=== PATIENT | female | born 1945 | race Two or more races ===

== ENCOUNTER → 2016-08-18 | Outpatient (CLI) | payer OTHER, MEDICAID | LOC: BHFA 09:30 | PROVIDERS: ATTEND Internal Medicine Cardiovascular Disease | DX: I34.0 Nonrheumatic mitral (valve) insufficiency (principal) | CPT/HCPCS: 78452; 93017; A9500; J2785 ==

== ENCOUNTER → 2016-08-21 | Outpatient (CLI) | payer OTHER, MEDICAID | LOC: BHFA 09:15 | PROVIDERS: ATTEND Internal Medicine Cardiovascular Disease | DX: I25.10 Atherosclerotic heart disease of native coronary artery without angina pectoris (principal); R01.1 Cardiac murmur, unspecified ==

== ENCOUNTER 2016-08-28 11:28 | Observation (INO) | payer OTHER, MEDICAID ==
[2016-08-28] MEDS ORDERED: DIAZEPAM 5 MG TAB PO ONE (11:30)
[2016-08-28] MEDS ORDERED: NS 1,000 ML IV ONE (11:30)
[2016-08-28] MEDS ORDERED: ASPIRIN EC 325 MG TAB PO ONE (11:30)
[2016-08-28] MEDS ORDERED: FAMOTIDINE 20 MG TAB PO ONE (11:30)
[2016-08-28] MEDS ORDERED: diphenhydrAMINE 25 MG CAP PO ONE (11:30)
--- NOTE | 2016-08-28 12:02 | CPEKG ---
Heart Rate: 64 RR Interval: 938 P-R Interval: 144 QRSD Interval: 96 QT Interval: 448 QTC Interval: 463 P [place]ern[place]: -15 QRS [place]: -6 T Wave [place]: 40 EKG Severity - NORMAL ECG - EKG Impression: SINUS RHYTHM Electronically Signed By: Oc Mcbride 29-Aug-2016 11:57:04
[2016-08-28 12:17] LABS: % IMMATURE GRANULYOCYTES 0.3 % (0.0-1.1); ABSOLUTE IMMATURE GRANULOCYTES 0.03 10^3/uL (0.00-0.10); ADD DIFF? NO; ADD MORPH? NO; ADD SCAN? NO; ATYPICAL LYMPHOCYTE FLAG 10 (0-99); FRAGMENT RBC FLAG 0 (0-99); HEMATOCRIT 37.2 % (38.0-47.0); LEFT SHIFT FLG 0 (0-99); LIPEMIA HEMOLYSIS FLAG 80 (0-99); MEAN CELL HEMOGLOBIN 30.6 pg (27.9-34.1); MEAN CELL HEMOGLOBIN CONCENTR. 32.3 g/dL (32.4-36.7); MEAN CELL VOLUME 94.9 fL (81.5-99.8); MEAN PLATELET VOLUME 10.4 fL (8.7-11.7); PLATELET CLUMPS FLAG 0 (0-99); PLATELET COUNT 209 10^3/uL (150-400); RED BLOOD CELL COUNT 3.92 10^6/uL (4.18-5.33); RED CELL DISTRIBUTION WIDTH 13.6 % (11.5-15.2)
[2016-08-28 12:33] LABS: ANION GAP 11 mEq/L (8-16); CALCIUM 9.3 mg/dL (8.5-10.4); CARBON DIOXIDE 24 mEq/l (22-31); CHLORIDE 109 mEq/L (97-110); CHOLESTEROL 145 mg/dL (140-220); CHOLESTEROL/HDL RATIO 2.46 RATIO (1.00-4.44); CREATININE 0.6 mg/dL (0.6-1.0); GLOMERULAR FILTRATION RATE > 60; GLUCOSE 79 mg/dL (70-100); HIGH DENSITY LIPOPROTEIN 59 mg/dL (40-85); LDL/HDL RATIO 1.15 RATIO (1.00-3.22); LOW DENSITY LIPOPROTEIN 68 mg/dL (80-100); POTASSIUM 3.6 mEq/L (3.5-5.2); SODIUM 144 mEq/L (134-144); TRIGLYCERIDE 94 mg/dL (35-135); VERY LOW DENSITY LIPOPROTEINS 18 mg/dL (8-25)
[2016-08-28 12:34] LABS: MAGNESIUM 2.3 mg/dL (1.6-2.3); NON-HIGH DENSITY LIPOPROTEIN 86 mg/dL (90-129)
[2016-08-28 12:35] LABS: INR 1.15 (0.83-1.16); PROTIME(PATIENT) 14.6 SEC (12.0-15.0)
[2016-08-28] MEDS ORDERED: fentaNYL 100 MCG/2 ML INJ ONE (12:36)
[2016-08-28] MEDS ORDERED: VERAPAMIL 5 MG/2 ML VIAL ONE (12:36)
[2016-08-28] MEDS ORDERED: LIDOCAINE 1% 300 MG/30 ML SDV ONE (12:36)
[2016-08-28] MEDS ORDERED: MIDAZOLAM 2 MG/2 ML VIAL ONE (12:36)
[2016-08-28] MEDS ORDERED: IOPAMIDOL (ISOVUE-370) 150 ML BTL IV ONE ×2 (12:37→13:30)
[2016-08-28] MEDS ORDERED: BIVALIRUDIN 250 MG/5 ML VIAL IV ONE ×2 (13:30)
[2016-08-28] MEDS ORDERED: NITROGLYCERIN 1,500 MCG/15 ML VIAL MISC ONE (13:30)
[2016-08-28] MEDS ORDERED: CLOPIDOGREL BISULFATE 75 MG TAB ONE ×2 (13:53→13:54)
--- NOTE | 2016-08-28 14:45 | CPEKG ---
Heart Rate: 60 RR Interval: 1000 P-R Interval: 184 QRSD Interval: 98 QT Interval: 452 QTC Interval: 452 P Lowber: 33 QRS Lowber: -6 T Wave Lowber: 46 EKG Severity - OTHERWISE NORMAL ECG - EKG Impression: SINUS RHYTHM EKG Impression: VENTRICULAR PREMATURE COMPLEX Electronically Signed By: Oc Mcbride 29-Aug-2016 11:57:14
[2016-08-28] MEDS ORDERED: ONDANSETRON DISINTEGRATING 4 MG TAB PO PRN (15:44)
[2016-08-28] MEDS ORDERED: TEMAZEPAM 15 MG CAP PO PRN (15:44)
[2016-08-28] MEDS ORDERED: LORazepam 2 MG/ML INJ IVP PRN (15:44)
[2016-08-28] MEDS ORDERED: ATROPINE SULFATE 1 MG/10 ML SYR IVP PRN (15:44)
[2016-08-28] MEDS ORDERED: ACETAMINOPHEN 325 MG TAB PO PRN (15:44)
[2016-08-28] MEDS ORDERED: CLOPIDOGREL BISULFATE 75 MG TAB PO ONE (15:44)
[2016-08-28] MEDS ORDERED: ONDANSETRON 4 MG/2 ML VIAL IVP PRN (15:44)
[2016-08-28] MEDS ORDERED: OXYCODONE/APAP 5/325 TAB PO PRN (15:44)
[2016-08-28] MEDS ORDERED: NITROGLYCERIN 0.4 MG BTL SL PRN (15:44)
[2016-08-28] MEDS ORDERED: NS 1,000 ML IV SCH (15:45)
[2016-08-28] MEDS ORDERED: ISOSORBIDE MONONITRATE 30 MG TAB.SR PO SCH (18:00)
[2016-08-28] MEDS ORDERED: NON-FORMULARY NEW DRUG (Simvastatin [Simvastatin] 40 MG) PO SCH (18:00)
--- NOTE | 2016-08-28 20:15 | CPIP ---
[f rep st] INVASIVE CARDIAC PROCEDURE DATE OF PROCEDURE: 08/28/2016 PROCEDURE PERFORMED: 1. Selective coronary angiography. 2. Left heart catheterization. 3. Left ventriculogram. 4. Percutaneous transluminal coronary angioplasty and stent placement of the mid right coronary art sebastian with a 4.0 x 28 Synergy drug-eluting stent. COMPLICATIONS: None. INDICATIONS FOR PROCEDURE: CCS class 4 symptoms of angina, presenting in an unstable pattern, occur ring at rest as well as a high risk stress test with perfusion deficit of the anterior wall. Anterior wall motion abnormalities on the nuclear stress test considered intermediate to high risk s tress test. PROCEDURE IN DETAIL: After informed consent was obtained and n.p.o. status was confirmed, the regio n of the right groin was cleaned, prepped and draped in sterile fashion. Approximately 15 cc of 1% lidocaine were utilized for local anesthesia. A 6-Israeli sheath was placed in the right common femo ral artery with single entry puncture of vessel. The patient then underwent the previously mentione d diagnostic procedure with use of JR4 and L4 curve coronary catheters as well as 6-Israeli pigtail c atheter. Standard wire exchange technique was utilized for all catheter exchanges. The left main coronary lumen is approximately 6 mm in size. It bifurcates into an LAD and circumfle x system. The LAD has been previously stented at the level of the diagonal takeoff and is widely pa tent with OCTAVIA-3 flow to the distal vessel. There is no evidence of in-stent restenosis angiographi brianna and no evidence of significant blockage involving the diagonal takeoff which has been previous ly ballooned. The circumflex obtuse marginal system reveals luminal irregularity consistent with un derlying atherosclerosis, maximal luminal stenosis approximately 20%. No flow-limiting obstruction is identified. The right coronary artery is dominant and large approximately 4 mm in size giving rise to posterior descending and 2 posterolateral ventricular branches. The mid right coronary artery is severely dis eased with hazy appearing lesions which may be in fact unstable. These findings angiographically ma y be consistent with clot formation. The patient then underwent QCA of the blood vessels demonstrat ing a 78% obstruction of the right coronary artery in its mid course just distal to the right ventri cular branch takeoff. The patient underwent left heart catheterization with a pigtail catheter demonstrating preserved and normal ejection fraction at 60%. No resting segmental wall motion abnormalities, mitral regurgitat ion or evidence of aortic stenosis was noted on pullback across the aortic valve. A right coronary guiding catheter was used for guide catheter support and Intuition wire was advance d across the lesion in question. It was primarily ballooned with a 3.5 x 15 Emerge balloon. Ultimchantale walker after we created some room there we were able to place a 4.0 x 28 Synergy drug-eluting stent wh ich was inflated at high pressure to 16 atmospheres with 2 serial inflations which resulted in a 0% residual stenosis status post PTCA and stent placement with excellent and OCTAVIA-3 flow. SUMMARY OF FINDINGS: Severe robinson vessel coronary disease with prior stent of the LAD and balloon angioplasty of the diagonal take-off of the LAD, now with a new 80% lesion with OCTAVIA-3 flow by QCA a nalysis, and 0% residual stenosis status post PTCA and stent implantation. The patient appears to b e a good candidate for ongoing medical therapy, should be admitted overnight for observation and we will discharge home tomorrow when she is able to take p.o. and ambulate without assistance. /[id number]/MODL
[2016-08-28] MEDS: AZELASTINE NASAL MDI NS SCH (20:41)
[2016-08-29 05:01] LABS: % IMMATURE GRANULYOCYTES 0.2 % (0.0-1.1); ABSOLUTE IMMATURE GRANULOCYTES 0.01 10^3/uL (0.00-0.10); ADD DIFF? NO; ADD MORPH? NO; ADD SCAN? NO; ATYPICAL LYMPHOCYTE FLAG 10 (0-99); FRAGMENT RBC FLAG 0 (0-99); HEMOGLOBIN 12.2 g/dL (12.6-16.3); LEFT SHIFT FLG 0 (0-99); LIPEMIA HEMOLYSIS FLAG 80 (0-99); MEAN CELL HEMOGLOBIN 30.2 pg (27.9-34.1); MEAN CELL HEMOGLOBIN CONCENTR. 32.1 g/dL (32.4-36.7); MEAN CELL VOLUME 94.1 fL (81.5-99.8); MEAN PLATELET VOLUME 10.3 fL (8.7-11.7); PLATELET CLUMPS FLAG 0 (0-99); PLATELET COUNT 185 10^3/uL (150-400); RED BLOOD CELL COUNT 4.04 10^6/uL (4.18-5.33); RED CELL DISTRIBUTION WIDTH 13.7 % (11.5-15.2)
[2016-08-29 05:49] LABS: ALBUMIN 3.7 g/dL (3.5-5.0); ANION GAP 11 mEq/L (8-16); ASPARTATE AMINOTRANSFERASE 17 IU/L (14-46); BILIRUBIN,TOTAL 0.6 mg/dL (0.1-1.4); CALCIUM 9.3 mg/dL (8.5-10.4); CARBON DIOXIDE 19 mEq/l (22-31); CHLORIDE 112 mEq/L (97-110); CREATININE 0.6 mg/dL (0.6-1.0); GLOMERULAR FILTRATION RATE > 60; GLUCOSE 85 mg/dL (70-100); LACTATE DEHYDROGENASE 377 IU/L (313-618); MAGNESIUM 2.2 mg/dL (1.6-2.3); SODIUM 142 mEq/L (134-144)
--- NOTE | 2016-08-29 06:30 | CPEKG ---
Heart Rate: 62 RR Interval: 968 P-R Interval: 152 QRSD Interval: 94 QT Interval: 456 QTC Interval: 463 P Trent: -14 QRS Trent: 7 T Wave Trent: 45 EKG Severity - ABNORMAL ECG - EKG Impression: SINUS RHYTHM EKG Impression: CONSIDER ANTEROSEPTAL INFARCT Electronically Signed By: Oc Mcbride 29-Aug-2016 11:57:21
[2016-08-29] MEDS ORDERED: IRBESARTAN 150 MG TAB PO SCH (09:00)
[2016-08-29] MEDS ORDERED: amLODIPine BESYLATE 5 MG TAB PO SCH (09:00)
[2016-08-29] MEDS ORDERED: ASPIRIN EC 325 MG TAB PO SCH (09:00)
[2016-08-29] MEDS ORDERED: CLOPIDOGREL BISULFATE 75 MG TAB PO SCH (09:00)
[2016-08-29] MEDS ORDERED: ATORVASTATIN CALCIUM 20 MG TAB PO SCH (09:00)
[2016-08-29] MEDS: AZELASTINE NASAL MDI NS SCH (09:46)
[2016-08-29 12:05] VITALS: BP 134/70; PULSE 80; RESP 16; TEMP 97.9; O2SAT 93
--- NOTE | 2016-08-29 13:07 | GDS ---
[f rep st] DISCHARGE SUMMARY ADMIT DIAGNOSES: 1. Unstable angina pectoris. 2. Abnormal nuclear stress test. 3. Coronary artery disease. 4. Dyslipidemia. 5. Hypertension. DISCHARGE DIAGNOSES: 1. Coronary artery disease, status post PTCA and stent placement of the right coronary artery. Uns table angina, resolved. 2. Coronary artery disease. 3. Dyslipidemia. 4. Hypertension. HISTORY OF PRESENT ILLNESS: Please see the recently dictated H and P. briefly, Ms. Brenna Li has been previously stented for coronary disease and angina. She presented with recurrent angina a nd was found to have a large anterior deficit on nuclear stress testing and was felt to be a martir te for cardiac catheterization. She was referred for the same. HOSPITAL COURSE: The patient underwent cardiac catheterization, and to our surprise the anterior ci rculation was found to be in good condition; however, the patient had significant flow-limiting obst ruction of the LAD of the right coronary artery which was clearly progressed compared to her last an giogram in 2013. By QCA this was found to be obstructive and greater than 80% blocked. She receive d a single drug-eluting stent to the mid right coronary artery at the level of the RV branch takeoff with subsequent improvement in the stenosis to a 5% residual stenosis. Excellent angiographic resu lts were obtained with a single stent implantation to the right coronary. The patient did well overnight and on the morning of her discharge from the hospital was medically s table and ready for discharge to home. She underwent cardiac catheterization from a right groin raudel castro, which was her preference. She has minimal tenderness there and excellent dorsalis pedis and posterior tibial pulses distally. She complains of only minimal chest discomfort and significant im provement in her chest pressure status post stent implantation, and appears to be a good candidate f or discharge. DISCHARGE MEDICATIONS: Have been changed somewhat as the patient's medical regimen is currently not recommended, specifically the use of amlodipine along with doses of simvastatin above 20 mg is not currently recommended. I therefore discontinued her simvastatin and I have ordered atorvastatin in a similar dose. Her specific discharge regimen is to include amlodipine 5 mg daily in the form of a mlodipine besylate, aspirin 325 mg daily to be continued for 1 month, followed by reduction in dose to 81 mg a day. She is to be on atorvastatin, calcium 20 mg daily, which will be a new prescription , and hopefully covered by Clinic. She is to resume her Azelastine spray 137 mcg per spray, clopid ogrel, of course, 75 mg daily to be continued in combination with either 325 mg of aspirin for the f irst month followed by 81 mg of aspirin to complete a 1 year prescription following today's date, 2016. She is to be on irbesartan 150 mg daily, which is a home medication, and she is to be o n isosorbide mononitrate 60 mg daily, 60 mg tablet as extended release formulation, and the simvasta tin, of course, will be discontinued. I have asked that she resume the omeprazole at 20 mg which is known to not interact significantly with Plavix as was suspected by in vivo studies which has been proven to not interact significantly with Plavix in a negative way in, in vivo studies; therefore, I believe the combination to be safe and effective. The patient understands her discharge instructio ns and is to be on groin precautions for the next 7 to 10 days. She is to return promptly to the em ergency department should she experience chest discomfort, pressure tightness, groin complications, fainting, near fainting sensation, tachycardia or other clinical symptoms of concern. She does have a followup appointment next Sunday which will be, I believe, with Tianna Duff or Dr. Zavaleta, who is her regular specimen processor. /[id number]/MODL
== END 2016-08-29 13:48 | disposition home or self-care (01) ==
LOC: FCATH 11:28 → F2W 14:14
PROVIDERS: ADMIT Internal Medicine Cardiovascular Disease; ATTEND Internal Medicine Cardiovascular Disease
PROC: B2111ZZ Fluoroscopy of Multiple Coronary Arteries using Low Osmolar Contrast (ICD-10-PCS; principal; 2016-08-28)
PROC: 027034Z Dilation of Coronary Artery, One Artery with Drug-eluting Intraluminal Device, Percutaneous Approach (ICD-10-PCS; principal; 2016-08-28)
PROC: 4A023N7 Measurement of Cardiac Sampling and Pressure, Left Heart, Percutaneous Approach (ICD-10-PCS; principal; 2016-08-28)
PROC: B2151ZZ Fluoroscopy of Left Heart using Low Osmolar Contrast (ICD-10-PCS; principal; 2016-08-28)
DX: I25.110 Atherosclerotic heart disease of native coronary artery with unstable angina pectoris (principal); I10 Essential (primary) hypertension; E78.5 Hyperlipidemia, unspecified; Z96.659 Presence of unspecified artificial knee joint
CPT/HCPCS: 92920; 93005; 93458; C1725; C1760; C1769; C1874; C1887; C9600; J0583; J1644; J2250; J3010; Q9967

== ENCOUNTER → 2017-09-05 | Outpatient (CLI) | payer OTHER, MEDICAID | LOC: BHFA 14:00 | PROVIDERS: ATTEND Internal Medicine Cardiovascular Disease | DX: R00.2 Palpitations (principal) ==

== ENCOUNTER → 2017-09-24 | Outpatient (CLI) | payer OTHER, MEDICAID | LOC: BHFA 08:30 | PROVIDERS: ATTEND Internal Medicine Cardiovascular Disease | DX: I25.10 Atherosclerotic heart disease of native coronary artery without angina pectoris (principal); I05.9 Rheumatic mitral valve disease, unspecified | CPT/HCPCS: 78452; 93017; 93306; A9500 ==

== ENCOUNTER → 2017-10-03 | Outpatient (CLI) | payer OTHER, MEDICAID | LOC: BHFA 09:45 | PROVIDERS: ATTEND Physician Assistant Medical | DX: I34.0 Nonrheumatic mitral (valve) insufficiency (principal) ==